=== PATIENT | female | born 2000 | race Hispanic/Latino ===

== ENCOUNTER 2024-10-07 17:08 | Emergency (ER) | payer BC, SELFPAY ==
[2024-10-07 17:13] VITALS: BP 118/74
[2024-10-07 17:39] LABS: Hematocrit 36.9 % (37.0-47.0); Hemoglobin 12.6 g/dL (12.0-16.0); Mean Corp Hgb Conc. 34.1 g/dL (33.0-37.0); Mean Corpuscular Volume 88.1 fL (81.0-99.0); Nucleated Red Blood Cells % 0 %; Platelet Count 168 10^3/uL (130-400); Red Cell Dist. Width 12.1 % (11.5-14.5)
[2024-10-07 17:46] LABS: HCG, Serum Qualitative Screen Negative
[2024-10-07 17:51] LABS: ALT (SGPT) 20 U/L (0-35); AST (SGOT) 27 U/L (14-36); Albumin 5.1 g/dl (3.5-5.0); Alkaline Phosphatase 46 U/L (38-126); Blood Urea Nitrogen 18 mg/dl (7-17); Calcium 9.6 mg/dl (8.4-10.2); Carbon Dioxide 27 mmol/L (22-30); Chloride 103 mmol/L (98-107); Glucose 102 mg/dl (70-99); Potassium 4.1 mmol/L (3.5-5.1); Sodium 139 mmol/L (135-145); Total Protein 7.8 g/dl (6.3-8.2); eGFR > 60.00
--- NOTE | 2024-10-07 22:30 | ED.GENMED ---
History of Present Illness
General
Chief Complaint: Abdominal Pain
Source: patient
Exam Limitations: none
Time Seen by Provider: 10/07/24 20:34
Nursing documentation reviewed up to this point in time: agreed with
History of Present Illness
History of Present Illness:
Patient to ED with complaint of abdominal bloating/gas, constipation for many months. Yesterday she took Mag Citrate and 8 hours later she was able to pass some stool but does not feel that she completely evacuated. She reports constant bloating.
Has an appt with GI in [place] in 2 weeks but is concerned about the bloating and ongoing constipation. Denies fever/chills, n/v/d.
Past History
Past History
ED Past Medical History: None
Review of Systems
Review of Systems
Allergies reviewed?: Yes
All Other Systems: ROS reviewed and negative except as documented in HPI and ROS
Constitutional: Reports no symptoms
EENT: Reports no symptoms
Respiratory: Reports no symptoms
Cardiac: Reports no symptoms
ABD/GI: Reports constipated and other (bloating)
: Reports no symptoms
Musculoskeletal: Reports no symptoms
Skin: Reports no symptoms
Neurological: Reports no symptoms
Psychiatric: Reports no symptoms
Phy Exam
General Physical Exam
General Presentation: well appearing and no apparent distress
General age: appears stated age
General Skin: warm and dry
General Habitus: normal
General Mental: alert
Cardiovascular Exam
Cardiovascular Exam: regular rate/rhythm and no edema
Gastrointestinal Exam
Gastrointestinal Exam: normal bowel sounds, non tender, soft, no organomegaly, no pulsatile mass, non distended and no cva tenderness
Musculoskeletal Exam
Musculoskeletal Exam: full ROM and neuro vasc intact
Skin Exam
Skin Exam: normal color, warm/dry and no rash
Psychiatric Exam
Psychiatric Exam: normal mood/affect
Course
Orders/Labs/Results
Orders:
Orders
10/07/24 17:19
Test Result ONCE
10/07/24 17:28
Complete Blood Count/With Diff Urgent
Comprehensive Metabolic Panel Urgent
HCG, Serum Qualitative Screen Urgent
TSH Reflex To Free T4 Urgent
10/07/24 21:34
Abdomen Xray - 1 View [CR Abdomen - 1 View] Urgent
Comment:
Reason For Exam: bloating, constipation
10/07/24 22:04
Pelvis (Non Obstetric) US [US Pelvis Only (non-obstetric)] Urgent
Comment:
Reason For Exam: pelvic pain
Abnormal Lab Results
10/07/24
17:28
RBC 4.19 L 10^6/uL
(4.20-5.40)
Hct 36.9 L %
(37.0-47.0)
MPV 11.9 H fL
(7.4-10.4)
BUN 18 H mg/dl
(7-17)
Glucose 102 H mg/dl
(70-99)
Albumin 5.1 H g/dl
(3.5-5.0)
10/07/24 17:28
10/07/24 17:28
Vital Signs
Initial and Last Documented VS:
Initial Vital Signs
Temp Pulse Resp BP Pulse Ox
98.2 F 63 18 118/74 98
10/07/24 17:13 10/07/24 17:13 10/07/24 17:13 10/07/24 17:13 10/07/24 17:13
Last Documented Vital Signs
Temp Pulse Resp BP Pulse Ox
98.2 F 63 18 118/74 98
10/07/24 17:13 10/07/24 17:13 10/07/24 17:13 10/07/24 17:13 10/07/24 22:37
*Radiology
Radiology exam reviewed: radiology read reviewed
*Pulse Oximetry
SaO2: 98
Oxygen Mode of Delivery: Room air
Patient hypoxic: no
*Critical Care Note
Total Time (30-74mins, 75-104mins- exclusive of procedures): Not Applicable
Update Note
Update Note:
Patient to ED with complaint of ongoing abdominal bloating/gas, constipation. NO vomiting or diarrhea. No changes iin appetite. Has an appt in 2 weeks with GI. Labs tonight are not concerning. VSS, she is afebrile. Abdomen is soft, nontender.
Normoactive BS all quads. Abd xray with normal bowel gas pattern, mild/moderate stool. Discussed findings with her. No further testing indicated tonight in ED. Will recommend she proceed with GI consult in 2 weeks, Given s/s to return to ED and
she is agreeable to plan.
ED Attending Note
-
Portions of this chart may have been created with voice recognition software.� Occasional wrong word or��sound alike� substitutions may have occurred due to the inherent limitations of voice recognition software.
Discharge Plan
Departure
Patient Disposition: Home (Routine Discharge)
Date of Disposition: 10/07/24
Time of Disposition: 22:26
Patient with high blood pressure during this ER visit?: No
Condition: Good
Covid-19: Not Applicable
Discharge Problem:
Abdominal bloating, Constipation
Instructions: Constipation, Adult (DC), Gas and bloating, High-fiber diet
Referrals:
Ellen Littlejohn MD [Active, Gastroenterology] - Call in 1-3 days for appt
PRIVATE,PHYSICIAN [Family Provider, Internal Medicine]
Activity Restrictions/Additional Instructions:
Return to the emergency department immediately for any changes in/worsening of your symptoms.
Interventions
Interventions:
*Risk Screen - Suicide Last Done: 10/07/24 17:13
*General Assessment Last Done: 10/07/24 17:13
IJ-Dbmick-Pyckxnfmzf Assessment Last Done: 10/07/24 22:17
Discharge Date and Time
Print Language: TELUGU
== END 2024-10-07 23:12 | disposition home or self-care (01) ==
LOC: EMR 17:08
PROVIDERS: Student in an Organized Health Care Education/Training Program; EMERGENCY PHYSICIAN Emergency Medicine
DX: K59.00 Constipation, unspecified (principal); R14.0 Abdominal distension (gaseous)
CPT/HCPCS: 99284; 74018; 80053; 84443; 84703; 85025